=== PATIENT | female | born 1930 | race Caucasian/White ===

== ENCOUNTER 2017-05-25 06:07 | Day surgery (SDC) | payer OTHER ==
[2017-05-23 11:49] VITALS: BMI 23.3
[2017-05-25] MEDS ORDERED: BUPIVACAINE HCL/PF 0.25% (2.5MG/ML) 10 ML VIAL ONE (07:29)
[2017-05-25] MEDS ORDERED: methylPREDNISolone ACET (DEPO) 80 MG/1 ML VIAL ONE (07:29)
[2017-05-25] MEDS ORDERED: PROPOFOL 20 ML ONE (07:56)
[2017-05-25] MEDS ORDERED: BUPIVACAINE HCL/PF 0.25% (2.5MG/ML) 10 ML VIAL IJ ONE (08:21)
[2017-05-25] MEDS ORDERED: LIDOCAINE HCL 1%, 10 MG/ML (50 mL VIAL) IJ ONE (08:21)
[2017-05-25] MEDS ORDERED: methylPREDNISolone ACET (DEPO) 80 MG/1 ML VIAL IJ ONE (08:22)
--- NOTE | 2017-05-25 09:11 | PN ---
Progress Note (short form) - Note Progress Note: NEUROSURGERY Sitting up in bed No complaint; No H/A, N/V Tolerating po Moving B MONICA well Advised pt and family at bedside to contact the office in 3-4 days to update us on her progress Light activity today, resume ordinary activity tomorrow
--- NOTE | 2017-05-25 09:19 | OP ---
DATE OF OPERATION: 05/25/2017 PREOPERATIVE DIAGNOSIS: Lumbar spinal stenosis with lumbar back pain and lumbar radiculopathy. POSTOPERATIVE DIAGNOSIS: Lumbar spinal stenosis with lumbar back pain and lumbar radiculopathy. ATTENDING SURGEON: Claude Goldstein MD PROCEDURE: 1. Right L5-S1 epidural steroid injection. 2. Intraoperative fluoroscopy. ANESTHESIA: Local with IV sedation. ANESTHESIOLOGIST: Vy Child MD BLOOD LOSS: Minimal. INDICATION: The patient is an 86-year-old female with back pain and lumbar radiculopathy. Because of intractable symptoms and failure of conservative treatment, she is here for her 1st epidural steroid injection. The risks of the procedure include, but are not limited to, bleeding, infection, spinal headache, and neurological injury. The patient understands the indication for the procedure, procedure in detail, risks and benefits and alternatives for the treatment of her lumbar condition and wishes to proceed. No guarantees given for a favorable outcome. PROCEDURE IN DETAIL: Patient was taken to the operating room and she was placed in the prone position with a pillow under her hips. Lumbar region was cleaned with alcohol and prepped with Betadine. A skin wheal was raised with 5 mL of 1% Xylocaine. A 22-gauge spinal needle was inserted under AP and now fluoroscopic guidance from a right-sided approach to the right-sided spinal canal at L5-S1. Loss of resistance technique was utilized and there was no CSF or blood backflow. Depo-Medrol 80 mg and 1 mL of 0.25% Marcaine were injected. The needle was withdrawn and sterile bandage was applied. The patient tolerated the procedure well and was returned back to supine position, moving bilateral extremities well. She was not complaining of headache. CLAUDE GOLDSTEIN M.D. [id number]
[2017-05-25 09:59] VITALS: BP 127/76; PULSE 89; TEMP 98.5
== END 2017-05-25 10:03 | disposition home or self-care (01) ==
LOC: JASU-SURG 06:07
PROVIDERS: ATTEND Neurological Surgery
PROC: 3E0R3CZ (ICD-10-PCS; 2017-05-25)
PROC: B01BZZZ Fluoroscopy of Spinal Cord (ICD-10-PCS; 2017-05-25)
PROC: 3E0R33Z Introduction of Anti-inflammatory into Spinal Canal, Percutaneous Approach (ICD-10-PCS; principal; 2017-05-25 08:00)
DX: M48.06 Spinal stenosis, lumbar region (principal); M54.5 Low back pain; M54.16 Radiculopathy, lumbar region
CPT/HCPCS: 76000-TC

== ENCOUNTER 2017-09-21 06:39 | Day surgery (SDC) | payer OTHER ==
[2017-09-20 14:42] VITALS: BMI 28.3
[2017-09-21 07:10] VITALS: TEMP 98
[2017-09-21] MEDS ORDERED: BUPIVACAINE HCL/PF 0.25% (2.5MG/ML) 10 ML VIAL ONE (07:15)
[2017-09-21] MEDS ORDERED: methylPREDNISolone ACET (DEPO) 80 MG/1 ML VIAL ONE (07:15)
[2017-09-21] MEDS ORDERED: PROPOFOL 20 ML ONE (08:43)
[2017-09-21] MEDS ORDERED: LIDOCAINE HCL/PF 2% SDV 5ML VIAL ONE (08:43)
[2017-09-21] MEDS ORDERED: methylPREDNISolone ACET (DEPO) 80 MG/1 ML VIAL IM ONE (08:45)
[2017-09-21] MEDS ORDERED: BUPIVACAINE HCL/PF 0.25% (2.5MG/ML) 10 ML VIAL IJ ONE (08:45)
[2017-09-21 10:27] VITALS: BP 123/74; PULSE 78
--- NOTE | 2017-09-22 08:22 | OP ---
DATE OF OPERATION: 09/21/2017 PREOPERATIVE DIAGNOSIS: Lumbar spinal stenosis with lumbar radiculopathy. POSTOPERATIVE DIAGNOSIS: Lumbar spinal stenosis with lumbar radiculopathy. ATTENDING SURGEON: Claude Goldstein MD PROCEDURE: 1. L5-S1 epidural steroid injection. 2. Intraoperative fluoroscopy. ANESTHESIA: Local with IV sedation. ANESTHESIOLOGIST: Blane Zuleta MD INDICATIONS: The patient is an 86-year-old female with intractable lower back pain and lumbar radiculopathy. She has previously received 1 epidural steroid injection which helped her back pain and sciatica greatly. She is here for the second injection. The risks of the procedure included, but were not limited to, bleeding, infection, spinal headache, and neurological injury. The patient understands indication for the procedure, procedure in detail, risks and benefits and alternatives for the treatment of her lumbar condition and wishes to proceed. No guarantees were given for a favorable outcome. PROCEDURE IN DETAIL: After the patient was taken to the operating room, she was placed in prone position with a pillow under her hips. Lumbar region was cleaned with alcohol and prepped with Betadine. A skin wheal was raised with 5 mL of 1% Xylocaine. A 22-gauge spinal needle was inserted under AP and lateral fluoroscopic guidance from a right-sided approach to the L5-S1 anterolateral recess. [id number]-[id number] technique was utilized, and there was no CSF or blood backflow. A fairly thick ligamentum flavum was encountered. Depo-Medrol 80 mg and 1 mL of 0.25% Marcaine were injected. The needle was withdrawn. Sterile bandage was applied. The patient tolerated the procedure well and was returned back to supine position, moving bilateral extremities well. She did not complain of headache. CLAUDE GOLDSTEIN M.D. [id number]
== END 2017-09-21 10:00 | disposition home or self-care (01) ==
LOC: JASU-SURG 06:39
PROVIDERS: ATTEND Neurological Surgery
PROC: 3E0R3BZ Introduction of Anesthetic Agent into Spinal Canal, Percutaneous Approach (ICD-10-PCS; 2017-09-21)
PROC: B01BZZZ Fluoroscopy of Spinal Cord (ICD-10-PCS; 2017-09-21)
PROC: 3E0R33Z Introduction of Anti-inflammatory into Spinal Canal, Percutaneous Approach (ICD-10-PCS; principal; 2017-09-21 08:30)
DX: M48.061 Spinal stenosis, lumbar region without neurogenic claudication (principal); M54.16 Radiculopathy, lumbar region
CPT/HCPCS: 76000-TC

== ENCOUNTER 2018-03-15 04:52 | Day surgery (SDC) | payer OTHER ==
[2018-03-14 11:56] VITALS: BMI 27.4
[2018-03-15] MEDS ORDERED: LIDOCAINE HCL 1%, 10 MG/ML (20ML VIAL) ONE (10:28)
[2018-03-15] MEDS ORDERED: methylPREDNISolone ACET (DEPO) 80 MG/1 ML VIAL ONE (10:28)
[2018-03-15] MEDS ORDERED: BUPIVACAINE HCL/PF 0.25% (2.5MG/ML) 10 ML VIAL ONE (10:29)
[2018-03-15] MEDS ORDERED: BUPIVACAINE HCL/PF 0.25% (2.5MG/ML) 10 ML VIAL IJ ONE (10:43)
[2018-03-15] MEDS ORDERED: methylPREDNISolone ACET (DEPO) 80 MG/1 ML VIAL IJ ONE (10:43)
[2018-03-15] MEDS ORDERED: LIDOCAINE HCL 1% PRESERVATIVE FREE - 30ML VIAL IJ ONE (10:43)
--- NOTE | 2018-03-15 13:03 | OP ---
DATE OF OPERATION: 03/15/2018 PREOPERATIVE DIAGNOSIS: Lumbar spondylosis with stenosis and lumbar radiculopathy. POSTOPERATIVE DIAGNOSIS: Lumbar spondylosis with stenosis and lumbar radiculopathy. ATTENDING SURGEON: Claude Goldstein MD PROCEDURE: 1. Right L5-S1 epidural steroid injection. 2. Intraoperative fluoroscopy. ANESTHESIA: Local with IV sedation. ANESTHESIOLOGIST: Brittany Olvera MD INDICATION: The patient is an 87-year-old female with intractable lower back pain and lumbar radiculopathy. Because of intractable symptoms and failure of conservative treatment, she is here for her 3rd epidural steroid injection in about just over a year. The prior injection had given her some relief. The risks of procedure include but are not limited to bleeding, infection, spinal headache, and neurological injury. The patient understands the indication for the procedure, procedure in detail, risks and benefits, and alternatives for treatment of her lumbar condition and wished to proceed. No guarantees were given for a favorable outcome. PROCEDURE IN DETAIL: After the patient was taken to the operating room, she was placed in a prone position with a pillow under her hips. Lumbar region was cleaned with alcohol and prepped with Betadine. A skin wheal was raised with 5 mL of 1% Xylocaine. A 22-gauge 3-1/2 spinal needle was inserted under AP and lateral fluoroscopic guidance from a right-sided approach to L5-S1. The needle tip was near to the center of the spinal canal at L5-S1. The needle bevel was then turned cephalad. There was no CSF or blood backflow. Depo-Medrol 80 mg and 1 mL of 0.25% Marcaine were injected. The needle was withdrawn, sterile bandage was applied. The patient tolerated the procedure well, was turned back to supine position, moved bilateral extremities well. She did not complain of headache. CLAUDE GOLDSTEIN M.D. [id number]
[2018-03-15 14:19] VITALS: BP 150/80; PULSE 70; TEMP 98.7
== END 2018-03-15 11:55 | disposition home or self-care (01) ==
LOC: JASU-SURG 04:52
PROVIDERS: ATTEND Neurological Surgery
PROC: 3E0R33Z Introduction of Anti-inflammatory into Spinal Canal, Percutaneous Approach (ICD-10-PCS; 2018-03-15)
PROC: B01BZZZ Fluoroscopy of Spinal Cord (ICD-10-PCS; 2018-03-15)
PROC: 3E0R3BZ Introduction of Anesthetic Agent into Spinal Canal, Percutaneous Approach (ICD-10-PCS; principal; 2018-03-15 10:00)
DX: M43.06 Spondylolysis, lumbar region (principal); M54.16 Radiculopathy, lumbar region
CPT/HCPCS: 76000-TC-FY